=== PATIENT | female | born 1985 | race Caucasian/White ===

== ENCOUNTER → 2021-01-05 18:01 | Outpatient (CLI) | payer OTHER, SELFPAY ==
--- NOTE | ~2021-01-05 | XR_ITS ---
XR scoliosis survey DATE: 01/05/2021 18:31 INDICATION: Scoliosis TECHNIQUE: Standing AP and lateral views of the cervical, thoracic and lumbar spine COMPARISON: None FINDINGS: There is reversal of cervical curvature. There is 10 degrees levoscoliosis measured from T7 and T4. There is 28 degrees dextroscoliosis measured from T4 to T7. There is 40 degrees levoscoliosis measured from T7 to T11. There is 29 degrees rotatory dextroscoliosis measured from T11 to L3. The left femoral head is 5.3 mm higher than the right femoral head. No fracture or dislocation or bone destruction of the cervical, thoracic or lumbar spine. The sacroil iac joints are intact. IMPRESSION: 10 degrees levoscoliosis measured from T7 and T4. 28 degrees dextroscoliosis measured from T4 to T7. 40 degrees levoscoliosis measured from T7 to T11. 29 degrees rotatory dextroscoliosis measured from T11 to L3. The left femoral head is 5.3 mm higher than the right femoral head. Reviewed, dictated and finalized at [facility]. Reviewed, dictated and finalized at [facility].
== END ==
PROVIDERS: PCP Emergency Medicine
DX: M41.84 Other forms of scoliosis, thoracic region (principal); M21.752 Unequal limb length (acquired), left femur
CPT/HCPCS: 72082

== ENCOUNTER 2022-04-17 06:51 | Emergency (ER) | payer OTHER, MEDICAID, SELFPAY ==
--- NOTE | ~2022-04-17 | XR_ITS ---
XR chest 1V DATE: 04/17/2022 07:35 INDICATION: Cough, congestion, shortness of breath for 2 days TECHNIQUE: PA chest COMPARISON: None FINDINGS: Normal heart size. No hilar or mediastinal enlargement. No pulmonary infiltrate or consolidation, pleural effusion or pulmonary vascular congestion or pneumo thorax. Prominent thoracic and lumbar scoliosis. IMPRESSION: Prominent thoracic and lumbar scoliosis No active cardiopulmonary disease Reviewed, dictated and finalized at [facility]. STICS VICE PRESIDENT
[2022-04-17 06:53] VITALS: BP 120/73; PULSE 106; RESP 14; TEMP 36.3; O2SAT 100
[2022-04-17 07:47] VITALS: PULSE 106; RESP 20
[2022-04-17 07:47] LABS: Influenza A QL RT-PCR Negative (Negative); Influenza B QL RT-PCR Negative (Negative); RSV RNA, RT-PCR Negative (Negative); SARS-CoV-2 RNA PCR Negative
[2022-04-17] MEDS: ALBUTEROL SULFATE NEB 2.5 MG/3 ML INH 5 MG INHALATION (07:47)
[2022-04-17] MEDS: IPRATROPIUM BR 0.02% INH SOLN 0.5 MG/2.5 ML VIAL INHALATION (07:48)
[2022-04-17 08:30] VITALS: O2SAT 97
--- NOTE | 2022-04-17 09:17 | ED.URI ---
HPI - URI/Sore Throat General Chief Complaint: Upper Respiratory Infection Stated Complaint: congestion, sob, body aches Time Seen by Provider: 04/17/22 07:01 History of Present Illness HPI Narrative: Patient is a 37-year-old female who presents ER with viral syndrome. She has began having fevers and chills as well as sinus congestion body aches. Ongoing over the last 2 days. No known sick contacts. No chest pain or chest pressure. Has been using her albuterol with minimal relief. Feels like she has chest congestion. Related Data Home Medications Medication Instructions Recorded Confirmed dextroamphetamine-amphetamine 20 20 mg PO DAILY 11/23/21 12/31/21 mg tablet Allergies Allergy/AdvReac Type Severity Reaction Status Date / Time No Known Allergies Allergy Unverified 12/31/21 08:16 Review of Systems Review of Systems: All systems reviewed & are unremarkable except as noted in HPI and below Constitutional: Constitutional: Reports chills, Reports fatigue and Reports fever(s) ENT: Reports nasal congestion and Denies sore throat Cardiovascular: Cardiovascular: Denies chest pain, Denies rapid heart rate and Denies radiating jaw, neck or arm pain Respiratory: Respiratory: Reports chest congestion, Reports cough and Reports dyspnea Gastrointestinal: Gastrointestinal: Denies abdominal pain, Denies nausea and Denies vomiting PMFSH Past Medical History Medical History Abnormal Pap smear of cervix [id number] + hpv / colpo 08/26/2020/ Lgsil rpt pap in 1 year @ [facility] 11/01/2010([facility]) 03/21/2012 lgsil +hpv; 06/04/13 [facility] + hpv/ colpo 09/12/13 MYCHAL II 2/ Leep 10/21/13 [facility] MYCHAL 2-3 ; 07/20/2020 [facility] +hpv Chlamydia (~2011) Encounter for screening examination for sexually transmitted disease Encounter for surveillance of Implanon subdermal contraceptive 08/20/09 Implanon insertion 03/06/12 Implanon removal Gonorrhea (~2010) 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 Surgical History Surgical History H/O LEEP (10/21/13) MYCHAL 2-3 History of colposcopy with cervical biopsy 200901/06/11 squamous atypia, suggestive of koilocytotic atypia 09/12/13 MYCHAL II 08/26/20 LGSIL History of elective (~2014) Family History Family History Father Breast cancer Malignant tumor of urinary bladder Malignant neoplasm of skin Malignant tumor of testis Mother Diabetes mellitus Grandparent Heart disease Social History Social History Smoking status: Former smoker Tobacco type: e-cigarettes/vaping Alcohol intake: never Substance use: current Substance use type: marijuana Other substance usage details: 2 x week Additional living arrangements comments: 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 HEAD: Normocephalic, atraumatic. EYES: PERRL and EOMI. CHEST: Rales and wheezing left base. No respiratory distress. HEART: Tachycardic and regular. Normal peripheral pulses. ABDOMEN: Soft, nontender, nondistended. EXTREMITIES: Normal range of motion. No edema. SKIN: Warm, dry, no rash. NEURO: Alert and oriented x3. PSYCH: Normal mood and affect. Course Course Emergency Course: Patient resting comfortably. Feels markedly improved after nebulizer treatment. Discharge home with steroids and continued use of home albuterol. Vital Signs Vital signs: Vital Signs Temperature 97.4 F L 04/17/22 06:53 Pulse Rate 106 H 04/17/22 06:53 Respiratory Rate 14 04/17/22 06:53 Blood Pressure 120/73 04/17/22 06:53 Pulse Oximetry 100
[2022-04-17 09:34] VITALS: BP 120/83; PULSE 89; RESP 17; O2SAT 100
== END 2022-04-17 09:36 | disposition home or self-care (01) ==
PROVIDERS: Emergency Medicine; Emergency Provider Emergency Medicine; PCP Emergency Medicine
DX: J40 Bronchitis, not specified as acute or chronic (principal); Z87.891 Personal history of nicotine dependence; Z20.822 Contact with and (suspected) exposure to COVID-19
CPT/HCPCS: 71045; 87637; 94640; 99283

== ENCOUNTER → 2022-05-03 15:48 | Outpatient (CLI) | payer OTHER, MEDICAID, SELFPAY ==
--- NOTE | ~2022-05-03 | XR_ITS ---
EXAM: XR scoliosis survey DATE: 05/03/2022 16:26 HISTORY: Scoliosis . COMPARISON: 01/05/2021. FINDINGS: The lungs are clear. Normal cardiomediastinal silhouette. Normal abdominopelvic radiographi c findings. Normal mineralization. No fracture or dislocation. No lytic or blastic lesion. Joint spaces are maint ained. No erosion or periosteal change. Soft tissues within normal limits. Loss of the normal cervica l lordosis. Slight exaggeration of the thoracic kyphosis and lumbar lordosis. Moderate thoracic dextroscoliosis, neutral vertebra T6-7, end vertebrae at T4 and T7, Elliott angle 30 d egrees. Neutral vertebrae at T1 and T10. No structural abnormality. Moderate-severe lumbar rotatory dextroscoliosis, neutral vertebra at L2, end vertebrae at T12 and L3, Elliott angle 40 degrees. Neutral vertebrae at T10 and L5. No structural abnormality. The stable vertebra is L5. The right femoral head measures 4 mm shorter than the left. IMPRESSION: Stable thoracic and lumbar scolioses. Reviewed, dictated and finalized at [facility]. ING PRESS OPERATOR
== END ==
PROVIDERS: PCP Emergency Medicine
DX: M41.84 Other forms of scoliosis, thoracic region (principal); M41.86 Other forms of scoliosis, lumbar region
CPT/HCPCS: 72082

== ENCOUNTER 2023-06-28 16:43 | Outpatient (CLI) | payer BC, SELFPAY ==
--- NOTE | ~2023-06-28 | XR_ITS ---
EXAMINATION: XR scoliosis survey DATE: 06/28/2023 17:34 INDICATION: Scoliosis. TECHNIQUE: Anteroposterior and lateral views of the entire spine standing were obtained. COMPARISON: Radiographs 05/03/2022 FINDINGS: Left femoral head stands 5 mm higher than the right. There are 12 pairs of ribs. L5 is a tr ansitional segment. There is 27 degrees dextroscoliosis from T4 to T7 by the Elliott method, stable from 05/03/22. There is 32 degrees levoscoliosis from T7 to T12, which measured 36 degrees on 05/03/22.Th ere is 34 degrees dextroscoliosis from T12 to L4, which measured 40 degrees on 05/03/22. IMPRESSION: 1. Scoliosis. Reviewed, dictated and finalized at location [facility]. MOTIVE SERVICE DIRECTOR IMPRESSION: 1. Scoliosis.
== END 2023-06-28 16:44 ==
DX: M41.9 Scoliosis, unspecified (principal)
CPT/HCPCS: 72082